=== PATIENT | male | born 1960 | race Caucasian/White ===

== ENCOUNTER 2022-08-08 08:31 | Observation (INO) | payer OTHER ==
[2022-08-08 08:36] VITALS: BMI 34.2
[2022-08-08 10:00] LABS: BASO % 0.8 % (0-2.0); EOS % 1.4 % (0-4.5); HEMATOCRIT 44.9 % (35.4-49); HEMOGLOBIN 15.2 GM/dL (11.7-16.9); LYMPH % 22.7 % (8-40); MCHC 33.9 g/dl (32.0-35.9); MEAN CELL VOLUME 91.5 fl (80-96); MEAN PLT VOLUME 7.7 fl (7.5-11.1); MONO % 8.9 % (3.8-10.2); NEUT % 66.2 % (42.8-82.8); PLATELET COUNT 217 10^3/uL (134-434); RBC 4.91 M/mm3 (4.00-5.60); RDW 14.5 % (11.9-15.9); WHITE BLOOD COUNT 5.9 K/mm3 (4.0-10.0)
[2022-08-08 10:21] LABS: ALBUMIN 3.7 g/dl (3.4-5.0); CALCIUM 9.1 mg/dL (8.5-10.1)
[2022-08-08 10:25] LABS: CREATININE 0.9 mg/dL (0.55-1.3)
[2022-08-08 10:26] LABS: BILIRUBIN,TOTAL 0.6 mg/dL (0.2-1); TOT PROT 7.1 g/dl (6.4-8.2)
[2022-08-08] MEDS ORDERED: ACETAMINOPHEN 325 MG TABLET (FP) PO PRN (11:18)
[2022-08-08] MEDS ORDERED: RIVAROXABAN 20 MG TABLET PO SCH (18:00)
[2022-08-08] MEDS: ATORVASTATIN CA 10 MG TABLET (FP) PO SCH ×2 (21:50→21:51)
[2022-08-09 06:34] VITALS: RESP 18
[2022-08-09] MEDS ORDERED: RIVAROXABAN 20 MG TABLET PO SCH (08:00)
[2022-08-09 09:29] VITALS: BP 138/83; PULSE 66; TEMP 98.8
[2022-08-09] MEDS ORDERED: FOLIC ACID 1 MG TABLET (FP) PO SCH (10:00)
[2022-08-09] MEDS ORDERED: CYANOCOBALAMIN 1,000 MCG TABLET (FP) PO SCH (10:00)
[2022-08-09] MEDS ORDERED: ATENOLOL 50 MG TABLET (FP) PO SCH (10:00)
== END 2022-08-09 14:18 | disposition home or self-care (01) ==
LOC: JER 08:31 → JERBED 10:44 → J4W 15:36
PROVIDERS: ADMIT Internal Medicine; ATTEND Internal Medicine
DX: R07.89 Other chest pain (principal); C71.9 Malignant neoplasm of brain, unspecified; Z79.01 Long term (current) use of anticoagulants; R77.8 Other specified abnormalities of plasma proteins; K21.9 Gastro-esophageal reflux disease without esophagitis; I82.5Z1 Chronic embolism and thrombosis of unspecified deep veins of right distal lower extremity; E66.8 Other obesity; Z68.34 Body mass index [BMI] 34.0-34.9, adult
CPT/HCPCS: 0241U-QW; 36415; 71045-TC-FY; 80053; 84484; 85025; 93005; 93010; 99285-25; G0378

== ENCOUNTER 2023-11-27 20:23 | Emergency (ER) | payer OTHER ==
[2023-11-27 20:30] VITALS: BP 129/73; PULSE 78; RESP 19; TEMP 97.8; BMI 33.0
[2023-11-27] MEDS ORDERED: ACETAMINOPHEN INJECTION 100 ML IVPB ONE (21:06)
[2023-11-27] MEDS ORDERED: LIDOCAINE HCL 1%, 10 MG/ML (20ML VIAL) ONE (22:24)
[2023-11-27 22:26] LABS: BASO % 0.6 % (0-2.0); EOS % 0.6 % (0-4.5); HEMOGLOBIN 15.1 GM/dL (11.7-16.9); MCH 31.4 pg (25.7-33.7); MCHC 33.5 g/dl (32.0-35.9); MEAN CELL VOLUME 93.9 fl (80-96); MEAN PLT VOLUME 7.3 fl (7.5-11.1); MONO % 6.3 % (3.8-10.2); NEUT % 70.5 % (42.8-82.8); PLATELET COUNT 252 10^3/uL (134-434); RDW 14.4 % (11.9-15.9); WHITE BLOOD COUNT 5.5 K/mm3 (4.0-10.0)
[2023-11-27] MEDS ORDERED: LIDOCAINE 1%/EPI 1:100000 (20 ML MULTI DOSE VIAL) ONE (22:28)
[2023-11-27 22:31] LABS: INR 1.21 (0.83-1.09)
[2023-11-27 22:34] LABS: ACTIVATED PTT 31.6 SECONDS (25.2-36.5)
[2023-11-27 23:10] LABS: POTASSIUM 4.6 mmol/L (3.5-5.1)
[2023-11-27 23:13] LABS: BLOOD UREA NITROGEN 11.2 mg/dL (7-18)
[2023-11-27 23:14] LABS: ALBUMIN 3.9 g/dl (3.4-5.0); CALCIUM 9.1 mg/dL (8.5-10.1); MAGNESIUM 2.5 mg/dL (1.8-2.4)
[2023-11-27 23:17] LABS: PHOSPHOROUS 3.6 mg/dL (2.5-4.9)
[2023-11-27 23:18] LABS: BILIRUBIN,TOTAL 0.4 mg/dL (0.2-1); TOT PROT 7.6 g/dl (6.4-8.2)
[2023-11-27] MEDS ORDERED: DIPHTH,PERTUSS(ACELL),TET 0.5 ML DISP.SYRIN IM ONE (23:55)
[2023-11-28] MEDS: ACETAMINOPHEN 1000 MG/100 ML BAG IVPB ONE (00:08)
[2023-11-28] MEDS: DIPHTH,PERTUSS(ACELL),TET 0.5 ML DISP.SYRIN IM ONE (00:09)
== END 2023-11-28 00:16 | disposition home or self-care (01) ==
LOC: JER 20:23
PROC: 0HQ0XZZ Repair Scalp Skin, External Approach (ICD-10-PCS; principal; 2023-11-27)
PROC: 3E0234Z Introduction of Serum, Toxoid and Vaccine into Muscle, Percutaneous Approach (ICD-10-PCS; 2023-11-27)
DX: S01.01XA Laceration without foreign body of scalp, initial encounter (principal); F10.920 Alcohol use, unspecified with intoxication, uncomplicated; W01.198A Fall on same level from slipping, tripping and stumbling with subsequent striking against other object, initial encounter; Y92.000 Kitchen of unspecified non-institutional (private) residence as the place of occurrence of the external cause; Y90.9 Presence of alcohol in blood, level not specified
CPT/HCPCS: 12002-25; 36415; 70450-TC; 72125-TC; 80053; 80307; 83735; 84100; 84484; 85025; 85610; 85730; 86850; 86900; 86901; 90471; 90715; 93005; 93010; 99284-25